=== PATIENT | female | born 1950 | race Caucasian/White ===

== ENCOUNTER 2023-02-14 07:50 | Emergency (ER) | payer MEDICARE, OTHER, SELFPAY ==
--- NOTE | 2023-02-14 | ECG_ITS ---
Test Reason : hypertension Blood Pressure : / mmHG Vent. Rate : 073 BPM Atrial Rate : 073 BPM P-R Int : 164 ms QRS Dur : 086 ms QT Int : 372 ms P-R-T Axes : -09 042 055 degrees QTc Int : 409 ms Normal sinus rhythm Normal ECG No previous ECGs available Referred By: Generic ED Physician Electronically Signed By:FERNANDO MEDINA
--- NOTE | ~2023-02-14 | CT_ITS ---
EXAMINATION: CT ANGIOGRAM HEAD CT ANGIOGRAM NECK CLINICAL INFORMATION: Left eye blurry vision. Right-sided headache. COMPARISON: CT head from 02/14/2023. TECHNIQUE: Initial noncontrast sill worker imaging of the head and neck was performed. Comparison is made with noncontrast head CT from earlier today. Test bolus sequences followed by intravenous administration 70 mL of Omnipaque 350. Helical imaging was performed in the axial plane from the aortic arch to the skull vertex. Delayed postcontrast imaging of the head was also performed. The data was processed at the chief ultrasound technologist's workstation for generation of MIP sequences. Angled MIPs and volume rendered reformatted images were also generated at an offline 3D workstation. Stenoses are assessed in accordance with NASCET criteria unless otherwise indicated. This CT examination was performed using dose optimization techniques as appropriate, variously including the following: *Automated exposure control. *Adjustment of mA and/or kV according to patient size (this includes techniques or standardized protocols for targeted exams where dose is matched to indication/reason for exam; i.e. extremities or head). *Use of iterative reconstruction technique. DLP: 1384 mGy-cm FINDINGS: CT Head: There is no evidence of acute intracranial hemorrhage or edematous territorial infarction. Lopes-white matter differentiation is preserved. A few foci of hypoattenuation in the periventricular and deep white matter are consistent with mild microangiopathy. Proportional prominence of the ventricles and sulcal spaces without evidence of obstructive hydrocephalus. No abnormal mass effect or midline shift. No extra-axial fluid collections. No pathologic intra-axial enhancement or regional oligemia. No acute soft tissue or osseous abnormalities. Mild mucosal thickening of the paranasal sinuses. The mastoid air cells and middle ear cavities are clear. Periapical lucencies associated with the maxillary left 1st molar. Bilateral lens extractions. CT Neck: The thyroid gland and remaining cervical soft tissues are within normal limits. Moderate degenerative disc disease at C5-C6. Mild degenerative disc disease at all additional cervical levels. CT Upper Chest: The visualized lung apices and upper mediastinum are within normal limits. Neck CTA: Aortic Arch: Normal contour and caliber with mild calcific atherosclerotic disease. Classic 3 vessel branching pattern of the aortic arch. Great Vessel Origins: No significant stenosis of the branch origins. Right Common Carotid Artery: No focal stenosis or occlusion. Cervical Right Internal Carotid Artery: Mild calcific atherosclerotic disease of the carotid bulb and proximal internal carotid artery without flow-limiting stenosis. Left Common Carotid Artery: No focal stenosis or occlusion. Cervical Left Internal Carotid Artery: Mild calcific atherosclerotic disease of the carotid bulb and proximal internal carotid artery without flow-limiting stenosis. Cervical Right Vertebral Artery: Co-dominant. No focal stenosis or occlusion. Cervical Left Vertebral Artery: Co-dominant. No focal stenosis or occlusion. Brain CTA: Intracranial Internal Carotid Arteries: Mild calcific atherosclerotic disease of the intracranial internal carotid arteries without occlusion or flow-limiting stenosis. Right Anterior Cerebral Artery: Normal A1 segment. Normal opacification of the distal LEATHA segments. Left Anterior Cerebral Artery: Normal A1 segment. Normal opacification of the distal LEATHA segments. Anterior Communicating Artery: Normal. Right Middle Cerebral Artery: Normal M1 segment of the MCA without focal stenosis or occlusion. Normal arborization of the distal segments. Left Middle Cerebral Artery: Normal M1 segment of the MCA without focal stenosis or occlusion. Normal arborization of the distal segments. Right Vertebral Artery: Normal V4 segment. Normal opacification of the proximal segments of the posterior inferior cerebellar artery. Left Vertebral Artery: Normal V4 segment. Normal opacification of the proximal segments of the posterior inferior cerebellar artery. Basilar Artery: Normal without focal stenosis or occlusion. Normal appearance of the proximal superior cerebellar arteries. Right Posterior Cerebral Artery: Normal P1 segment. Normal opacification of the distal RACK WASHER segments. Left Posterior Cerebral Artery: Normal P1 segment. Normal opacification of the distal RACK WASHER segments. Normal opacification of the superior sagittal, straight, transverse, and sigmoid sinuses. CT/CT angio head neck stroke IMPRESSION: 1. No evidence of acute intracranial hemorrhage or edematous territorial infarction. Mild underlying microangiopathy and generalized cerebral volume loss. 2. CTA of the head and neck without proximal occlusion or flow-limiting stenosis. This critical result was discussed with Dr. Lopez at 10:25 on 02/14/2023 and it was ascertained that the content and urgency of the report was understood at the time of direct communication.
--- NOTE | ~2023-02-14 | CT_ITS ---
EXAMINATION: CT HEAD WITHOUT CONTRAST (STROKE PROTOCOL) CLINICAL INFORMATION: Stroke protocol. Blurring of vision, right-sided headache COMPARISON: None available. TECHNIQUE: Contiguous axial imaging was performed from the skull base to vertex without intravenous administration of contrast. This CT examination was performed using dose optimization techniques as appropriate, variously including the following: *Automated exposure control *Adjustment of mA and/or kV according to patient size (this includes techniques or standardized protocols for targeted exams where dose is matched to indication/reason for exam; i.e. extremities or head) *Use of iterative reconstruction technique DLP: 632.9 mGy-cm FINDINGS: Ventricles, sulci and cisterns are dilated, with mild disproportional ventriculomegaly. There is no midline shift, no abnormal intra- or extra- axial fluid accumulation. Lopes and white matter differentiation is normal. Bone window images show no evidence of skull fracture. CT/CT head for stroke IMPRESSION: 1. Age related cerebral atrophy and mild disproportional ventriculomegaly are seen. 2. No intracranial hemorrhage or skull fracture is seen. 3. No evidence of space occupying lesion could be found. 4. The current plain CT scan of the brain shows no diagnostic evidence of acute cerebral infarction. This critical result was discussed with Dr. Remi Lopez at 1008 hours on 02/14/2023. It was ascertained that the content and urgency of the report was understood at the time of direct communication.
[2023-02-14 08:01] VITALS: BP 155/90; BP 184/81; PULSE 72; PULSE 77; RESP 18; TEMP 36.7; O2SAT 97; O2SAT 99; BMI 25.8
[2023-02-14 08:05] VITALS: BP 181/85; PULSE 75; RESP 16; O2SAT 100
--- NOTE | 2023-02-14 08:09 | PC.NURSE ---
pt BIBA from home reporting onset of left eye blurriness and hypertension. pt reports blood pressure of 170/90 at home. pt reports not currently being on blood pressure medications, but currently uses natural beet root with effect. pt denies chest pain, n/v. pt reported mild headache before arrival but now reports it has now subsided. pt normal sinus on tele 73-78. EMS placed 20G right AC.
[2023-02-14 08:22] LABS: MANUAL DIFF FLAG NO
[2023-02-14 08:27] LABS: Basophils Absolute Auto 0.1 X10*3/uL (0.0-0.2); Eosinophils Absolute Auto 0.2 X10*3/uL (0.0-0.4); Eosinophils Percent Auto 3.5 % (0-4); Hemoglobin 15.3 g/dl (12.0-16.0); Imm Gran Abs Auto 0.02 X10*3/uL (0.00-0.03); Imm Gran Pct Auto 0.3 % (0.0-0.4); Lymphocytes Absolute Auto 1.9 X10*3/uL (1.2-4.9); Lymphocytes Percent Auto 30.4 % (20-40); Mean Corpuscular Hemoglobin 31.1 pg (27.0-33.0); Mean Corpuscular Volume 91.5 fL (80.0-98.0); Mean Platelet Volume 9.5 fL (9.4-12.3); Monocytes Absolute Auto 0.4 X10*3/uL (0.1-1.2); Monocytes Percent Auto 7.1 % (2-11); Neutrophils Absolute Auto 3.6 x10*3/uL (2.0-8.3); Neutrophils Percent Auto 57.7 % (45-73); Platelet Count 269 X10*3/uL (160-400); Red Blood Count 4.92 X10*6/uL (4.20-5.50); Red Cell Distribution Width 11.3 % (11.0-16.0); White Blood Count 6.2 X10*3/uL (4.8-10.8)
--- NOTE | 2023-02-14 08:43 | ED_ITS ---
HPI - General Adult General Chief complaint: General Medical Stated complaint: BHATIA T-2,HIGH BP 170/90,VISION CHANGES PER EMS Time Seen by Provider: 02/14/23 08:42 Source: patient Mode of arrival: ambulatory Limitations: no limitations History of Present Illness HPI narrative: 72-year-old female PMH hypertension, cataracts both eyes with lens replacement (left eye near vision lens, right eye far vision lens) presents emergency department for evaluation of headache, blurred vision in the left eye and elevated blood pressure. Patient states that she has high blood pressure and uses a herbal medication daily. She states that her blood pressure normally runs 120/80. She states that on 02/12/2023 (2 days prior to evaluation) she woke up at 07:00 hours and then had a sudden onset of right-sided headache. She states the pain was 8/10 onset and then became progressively worse. Pain was located right forehead and behind her right eye. She states she took a couple Tylenol and then the headache eventually resolved and went away. At that time her blood pressure was elevated 1 7 over 90. This morning she states that when she woke up she had blurred vision her left eye. She also states she now has a left-sided headache which is mild to moderate intensity. She states she had chills but no fever. She denied nausea or vomiting. She took her blood pressure and it was 175/90. Patient states that her blurred vision is persisted. She states that with her left thumb which is her near vision I she is able to read small print however , the small print is blurry which is unusual. Related Data Previous Rx's Medication Instructions Recorded erythromycin 5 mg/gram (0.5 %) eye 0.5 inch ophthalmic (eye) TID #3.5 02/14/23 ointment grams Allergies Allergy/AdvReac Type Severity Reaction Status Date / Time latex Allergy Unknown itching Uncoded 02/14/23 08:04 Review of Systems 2 Review of Systems: Yes all other systems are reviewed and are negative [facility] Past Medical History [facility] Narrative: Past medical history: Hypertension, bilateral cataracts with lens replacement for vision correction-left eye in your vision, right eye far vision Social History Social History Smoked in Last 30 Days: No Use of substances other than those prescribed or required for medical reasons: No Advance Directives: No Advance Directives Information Provided: Yes Physical Exam ED Vital Signs: Vital Signs - 24 hr 02/14/23 08:01 02/14/23 08:05 02/14/23 09:09 Temperature 98.1 F Pulse Rate 72 75 70 Respiratory Rate 18 16 16 Blood Pressure 184/81 H 181/85 H 153/84 H Pulse Oximetry 99 100 97 Oxygen Delivery Method Room Air Room Air Room Air 02/14/23 11:51 02/14/23 14:29 Temperature 98.3 F Pulse Rate 65 64 Respiratory Rate 16 12 Blood Pressure 134/82 145/78 H Pulse Oximetry 98 97 Oxygen Delivery Method Room Air Room Air BMI result Body Mass Index 25.8 Vital signs did reveal elevated systolic blood pressures otherwise unremarkable Exam General: Awake, alert in no distress Head: Normocephalic, atraumatic EENT: PERRL, Lids normal, sclera normal, conjunctiva normal, nose normal , ears normal, throat without erythema or exudates Neck: Supple, no adenopathy, no trachea midline or C-spine tenderness Lung: breath sounds symmetric, no wheezing, rales or rhonchi Chest: symmetric movement, nontender Heart: regular rate and rhythm, normal S1, S2 no murmurs or rubs Abdomen: soft, non-tender, nondistended, normal bowel sounds Back: no vertebral tenderness, no CVAT Extremities: no deformities, moves all extremities symmetrically Skin: no rashes, no lesion, normal color and warmth Neuro: Awake, alert, oriented, normal speech, cranial nerves intact, moves all extremities symmetrically Psych: Pleasant, cooperative Medications Administered Discontinued Medications Generic Name Dose Route Start Last Admin Trade Name Mary Carmen PRN Reason Stop Dose Admin Fluorescein Sodium 1 strip 02/14/23 09:35 02/14/23 10:29 Fluorescein Sodium Strip EYE-BOTH 02/14/23 09:36 1 strip ONCE ONE Administration Sodium Chloride 1,000 mls @ 999 mls/hr 02/14/23 09:29 02/14/23 11:30 Ns IV 02/14/23 10:29 Infused .Q1H1M STA Infusion Iohexol 100 ml 02/14/23 10:04 02/14/23 10:05 Iohexol 350 Mg/Ml 100 Ml Infus..Btl IV 02/14/23 10:05 70 ml ONCE ONE Administration Tetracaine HCl 1 drop 02/14/23 09:35 02/14/23 10:29 Tetracaine Hcl/Pf 0.5% Oph Natalie 4 Ml Drops EYE-BOTH 02/14/23 09:36 1 drop ONCE ONE Administration Medical Decision Making Medical Decision Making [facility] Narrative: 72-year-old female with history of hypertension who takes and verbal supple who presents emergency department for evaluation of left eye blurred vision that started when she woke up this morning with left-sided headache. She also noted that her blood pressure was elevated above her blades line at 175/90. Patient also had a sudden onset of right-sided headache to her right forehead behind her right eye 2 days prior that resolve several hours after take Tylenol. Patient's vital signs did reveal elevated systolic blood pressures. Patient's exam was unremarkable, she is able to read small print with her left eye but she states this blurry compared to her normal ability to read with the eye. Following evaluation was ordered: CBC, CMP, troponin, EKG, CT head without IV contrast and CT angiogram of the head and neck-stroke protocol Patient was treated with normal saline IV x1 L 13:53 Intra-ocular pressure and both eyes were normal (left eye 18, right eye 11) Patient's laboratory evaluation was unremarkable The patient's CT scan of the head without IV contrast was unremarkable CT scan angiogram of the head and neck revealed no significant abnormalities to explain the patient's symptoms. Fluorescein dye and Wood's lamp evaluation of the left eye did reveal small corneal abrasion but I am not certain if this explains her blurred vision 3 times a day. she was treated with erythromycin x7 days and given a dose emergency department Patient was given printed and verbal instructions and discharged home and advised to follow-up with her PCP for further evaluation of her symptoms and elevated glucose an process control engineer for further evaluation of her blurred vision. . Differential Diagnosis Differential Diagnoses: The differential diagnosis associated with the presentation includes Differential diagnosis includes was not limited to stroke, corneal abrasion, glaucoma, migraine syndrome, ocular my Admission/Observation Consideration of admission/observation: Escalation of care including admission/observation considered Lab Data [facility] Lab Attestation statement: I reviewed the patient's lab results. My interpretation patient's laboratory evaluation is as follows: CBC and CMP was normal. 02/14/23 08:18 02/14/23 09:02 Labs: Lab Results 02/14/23 02/14/23 02/14/23 Range/Units 08:18 08:19 09:02 WBC 6.2 (4.8-10.8) X10*3/uL RBC 4.92 (4.20-5.50) X10*6/uL Hgb 15.3 (12.0-16.0) g/dl Hct 45.0 (37.0-47.0) % MCV 91.5 (80.0-98.0) fL MCH 31.1 (27.0-33.0) pg MCHC 34.0 (31.0-35.0) g/dl RDW 11.3 (11.0-16.0) % Plt Count 269 (160-400) X10*3/uL MPV 9.5 (9.4-12.3) fL Immature Gran % (Auto) 0.3 (0.0-0.4) % Neut % (Auto) 57.7 (45-73) % Lymph % (Auto) 30.4 (20-40) % Mcdonough % (Auto) 7.1 (2-11) % Eos % (Auto) 3.5 (0-4) % Baso % (Auto) 1.0 (0-2) % Lymph # (Auto) 1.9 (1.2-4.9) X10*3/uL Mcdonough # (Auto) 0.4 (0.1-1.2) X10*3/uL Eos # (Auto) 0.2 (0.0-0.4) X10*3/uL Baso # (Auto) 0.1 (0.0-0.2) X10*3/uL Abs Immat Gran (auto) 0.02 (0.00-0.03) X10*3/uL Absolute Neuts (auto) 3.6 (2.0-8.3) x10*3/uL Absolute Nucleated RBC 0.000 (0.0-0.012) X10*3/uL Nucleated RBC % (auto) 0.0 (0.0-0.2) /100WBC Sodium 140 (135-145) mmol/L Potassium 4.7 (3.3-5.1) mmol/L Chloride 107 (96-108) mmol/L Carbon Dioxide 25 (22-29) mmol/L Anion Gap 13 (12-20) BUN 15 (9-16) mg/dL Creatinine 0.70 (0.5-1.4) mg/dL Estim Creat Clear Calc 72.9 Estimated GFR > 60 Random Glucose 110 (60-115) mg/dL Calcium 9.9 (8.4-10.2) mg/dL Total Bilirubin 0.9 (0.0-1.0) mg/dL AST 24 (5-31) U/L ALT 38 H (0-31) U/L Alkaline Phosphatase 53 (39-117) U/L Troponin I High Sens < 2.7 (<3.5-17.0) ng/L Total Protein 7.4 (6.5-8.0) g/dL Albumin 4.4 (3.5-5.0) g/dL Radiology Impression Discussion of test interpretation with radiology: I discussed test interpretation with the radiologist and I have reviewed the radiologist's reading. Radiologist Impression: CT angio head neck stroke IMPRESSION: 1. No evidence of acute intracranial hemorrhage or edematous territorial infarction. Mild underlying microangiopathy and generalized cerebral volume loss. 2. CTA of the head and neck without proximal occlusion or flow-limiting stenosis. This critical result was discussed with Dr. Lopez at 10:25 on 02/14/2023 and it was ascertained that the content and urgency of the report was understood at the time of direct communication. Dictated By: Rolando Avelar DO CT head for stroke IMPRESSION: 1. Age related cerebral atrophy and mild disproportional ventriculomegaly are seen. 2. No intracranial hemorrhage or skull fracture is seen. 3. No evidence of space occupying lesion could be found. 4. The current plain CT scan of the brain shows no diagnostic evidence of acute cerebral infarction. This critical result was discussed with Dr. Remi Lopez at 1008 hours on 02/14/2023. It was ascertained that the content and urgency of the report was understood at the time of direct communication. Dictated By: Moy Navarrete Independent Historian Son Prescription Management I considered prescription management with: Antibiotic Chronic Conditions Patient?s care impacted by: Hypertension Discharge Plan Discharge Clinical Impression: Corneal abrasion, left, Blurred vision, Headache Patient Disposition: Home, Self-Care Instructions: Corneal Abrasion (ED), Diabetic Hyperglycemia (ED) Additional Instructions: The CT scan of your brain without IV contrast revealed no evidence of a new or old stroke or bleeding in the brain which is reassuring. The CT angiogram of your head and neck revealed no abnormalities to explain your headaches or change in vision, this is also very reassuring. You have a very small abrasion to your cornea of your left eye. I am not sure if this is the cause of your blurred vision but you should follow-up with your process control engineer for re-evaluation within 2-3 days. Your intra-ocular pressures in both eyes were normal. Apply erythromycin ointment to your left eye 3 times a day for 7 days. This is to prevent infection of your corneal abrasion. Your blood glucose was elevated at 278. Normal blood glucose is 60-100. You should increase your fluid intake, avoid carbohydrates and foods high in sugar. You will need to follow-up with her doctor to determine if you need further testing or treatment for possible diabetes. I did add a hemoglobin A1c to your blood work, you can check this on your patient portal ensure this with your doctor. An elevated hemoglobin A1c can suggest that you have diabetes that needs treatment NOTE: The above information regarding the patient's glucose is incorrect, I had 2 charts open and I accidentally told the patient that her glucose was elevated. I did contact the patient to correct this error. Prescriptions: New erythromycin 5 mg/gram (0.5 %) ointment 0.5 inch ophthalmic (eye) TID Qty: 3.5 0RF Interventions: ED Discharge Assessment Last Done: 02/14/23 14:48 Discharge Date/Time: 02/14/23 14:49 Print Language: Monegasque
[2023-02-14 08:46] LABS: Troponin-I High Sensitivity < 2.7 ng/L (<3.5-17.0)
[2023-02-14 09:09] VITALS: BP 153/84; PULSE 70; RESP 16; O2SAT 97
--- NOTE | 2023-02-14 09:10 | PC.NURSE ---
this RN resumed care of pt at this time. pt verbalizing no pain - states that she is just feeling off. vss and up to date at this time. pt's BP continues to decrease. pt awaiting to speak w provider at this time. no sob/wob noted. respirations even and unlabored. family bedside. call brady placed within reach.
[2023-02-14 09:18] LABS: Anion Gap 13 (12-20)
--- NOTE | 2023-02-14 09:18 | PC.NURSE ---
pt speaking w/ ED provider at this time.
[2023-02-14 09:22] LABS: Alanine Aminotransferase 38 U/L (0-31); Albumin Level 4.4 g/dL (3.5-5.0); Alkaline Phosphatase 53 U/L (39-117); Aspartate Amino Transferase 24 U/L (5-31); Bilirubin Total 0.9 mg/dL (0.0-1.0); Blood Urea Nitrogen 15 mg/dL (9-16); Calcium 9.9 mg/dL (8.4-10.2); Carbon Dioxide 25 mmol/L (22-29); Chloride 107 mmol/L (96-108); Creatinine Clr Calc Pharmacy 72.9; Estimated Glomerular Filt Rate > 60; Glucose Random 110 mg/dL (60-115); Potassium 4.7 mmol/L (3.3-5.1); Sodium 140 mmol/L (135-145); Total Protein 7.4 g/dL (6.5-8.0)
--- NOTE | 2023-02-14 09:55 | PC.NURSE ---
pt to CT at this time.
[2023-02-14] MEDS: iohexoL 350 MG/ML 100 ML INFUS..BTL IV (10:05)
[2023-02-14] MEDS: 0.9 % Sodium Chloride 1,000 ML 999 ML IV (10:29)
[2023-02-14] MEDS: Tetracaine HCl/PF 0.5% Oph Sol 4 ML DROPS 1 DROP EYE-BOTH (10:29)
[2023-02-14] MEDS: Fluorescein Sodium STRIP 1 STRIP EYE-BOTH (10:29)
--- NOTE | 2023-02-14 10:30 | PC.NURSE ---
pt returned from CT. medication administered per provider order. ED provider bedside assessing pt's eye at this time.
[2023-02-14 11:51] VITALS: BP 134/82; PULSE 65; RESP 16; O2SAT 98
--- NOTE | 2023-02-14 11:52 | PC.NURSE ---
vss and up to date at this time. nsr on the ekg monitor tech. pt verbalizing headache subsided at this time. denies any other sx. respirations remain even and unlabored. family bedside. call brady placed within reach.
[2023-02-14 14:29] VITALS: BP 145/78; PULSE 64; RESP 12; TEMP 36.8; O2SAT 97
== END 2023-02-14 14:49 | disposition home or self-care (01) ==
PROVIDERS: Emergency Provider Emergency Medicine Emergency Medical Services; PCP Internal Medicine
DX: S05.02XA Injury of conjunctiva and corneal abrasion without foreign body, left eye, initial encounter (principal); R51.9 Headache, unspecified; H53.8 Other visual disturbances; X58.XXXA Exposure to other specified factors, initial encounter; Y93.9 Activity, unspecified; Y92.9 Unspecified place or not applicable; Y99.9 Unspecified external cause status
CPT/HCPCS: 36415; 70450; 70496; 70498; 80053; 84484; 85025; 93005; 96360; 99284; 99285; Q9967

== ENCOUNTER → 2023-02-14 08:13 | Outpatient (BNV) | payer MEDICARE, OTHER, SELFPAY | PROVIDERS: Emergency Provider Emergency Medicine Emergency Medical Services; PCP Internal Medicine; Visit Provider Internal Medicine | DX: I10 Essential (primary) hypertension (principal) | CPT/HCPCS: 93010 ==